=== PATIENT | female | born 1970 | race Caucasian/White ===

== ENCOUNTER 2023-02-22 06:55 | Day surgery (SDC) | payer OTHER ==
[~2023-02-22] VITALS: Ht 147.3 cm; Wt 65.8 kg
[2023-02-22] MEDS ORDERED: fentaNYL citrate 0.05 MG/ML VIAL ONE (08:13)
[2023-02-22] MEDS ORDERED: LIDOCAINE 2% 100 MG/5 ML UJET TP ONE (08:13)
[2023-02-22] MEDS ORDERED: MIDAZOLAM 5 MG/5 ML VIAL ONE (08:13)
[2023-02-22] MEDS ORDERED: diphenhydrAMINE 50 MG/ML VIAL ONE (08:13)
[2023-02-22] MEDS ORDERED: MIDAZOLAM 2 MG/2 ML VIAL IVP ONE (14:10)
[2023-02-22] MEDS ORDERED: fentaNYL citrate 0.05 MG/ML VIAL IVP ONE (14:10)
== END 2023-02-22 09:59 | disposition home or self-care (01) ==
LOC: MDS 06:55 → MMU 06:55 → MDS 09:59
PROVIDERS: ATTEND Internal Medicine Gastroenterology
DX: Z12.11 Encounter for screening for malignant neoplasm of colon (principal); D12.2 Benign neoplasm of ascending colon; Z85.3 Personal history of malignant neoplasm of breast; Z90.710 Acquired absence of both cervix and uterus; Z79.899 Other long term (current) drug therapy; Z20.822 Contact with and (suspected) exposure to COVID-19
CPT/HCPCS: 45380; 45385; 87426; 88305; J2250; J3010; J1200